=== PATIENT | female | born 1940 | race Hispanic/Latino ===

== ENCOUNTER 2016-04-12 11:05 | Outpatient (CLI) | payer MEDICARE, OTHER ==
--- NOTE | 2016-04-13 09:06 | Mammography Report ---
Screening mammogram: Routine views are compared to her prior exams in 2015 and 2016. The overall fibroglandular pattern is unchanged to being that of intermediate fibroglandular density in a symmetrically distributed pattern. There is no mass nor architectural distortion. There has been interval development of scattered non-clustered benign appearing left breast calcifications. CAD used. Impression: Benign breast pattern. Recommendation: Annual mammogram followup. BI-RADS CATEGORY: 1 = Negative ACR BI-RADS MAMMOGRAPHIC CODES: 0 = Needs additional imaging evaluation; 1 = Negative; 2 = Benign; 3 = Probably benign; 4 = Suspicious; 5 = Malignant; 6 = Known biopsy-proven malignancy COMMENT: 1. Dense breast tissue, i.e., adenosis, fibrocystic changes, etc., may obscure an underlying neoplasm. 2. Approximately 10% of cancers are not detected with mammography. 3. A negative mammography report should not delay biopsy if a clinically suspicious mass is present.
== END 2016-04-12 11:06 | disposition home or self-care (01) ==
LOC: MAMMO 11:05
PROVIDERS: ATTEND Internal Medicine
DX: Z12.31 Encounter for screening mammogram for malignant neoplasm of breast (principal)
CPT/HCPCS: 77067; G0202

== ENCOUNTER 2017-04-13 09:26 | Outpatient (CLI) | payer MEDICARE, OTHER ==
--- NOTE | 2017-04-13 15:12 | Mammography Report ---
BILATERAL DIGITAL SCREENING MAMMOGRAM with CAD: 04/13/17 09:26:00 CLINICAL: Routine screening. COMPARISON:04/12/16 FINDINGS: The breasts are almost entirely fatty. No mass, architectural distortion or suspicious calcifications. IMPRESSION: No mammographic evidence of malignancy. BI-RADS CATEGORY: 1 - - Negative RECOMMENDATION: Routine mammographic screening in one year. COMMENT: Patient follow-up letters are generated by our [address] application.
== END 2017-04-13 09:27 | disposition home or self-care (01) ==
LOC: MAMMO 09:26
PROVIDERS: ATTEND Internal Medicine
DX: Z12.31 Encounter for screening mammogram for malignant neoplasm of breast (principal)
CPT/HCPCS: 77067

== ENCOUNTER 2018-04-17 08:43 | Outpatient (CLI) | payer MEDICARE, OTHER ==
--- NOTE | 2018-04-17 14:20 | Mammography Report ---
BILATERAL DIGITAL SCREENING MAMMOGRAM with CAD: 04/17/18 08:43:00 CLINICAL: Routine screening. COMPARISON: 04/13/17 FINDINGS: There are bilateral scattered areas of fibroglandular density.No mass, architectural distortion or suspicious calcifications. IMPRESSION: No mammographic evidence of malignancy. BI-RADS CATEGORY: 1 -- Negative RECOMMENDATION: Routine mammographic screening in one year. COMMENT: Patient follow-up letters are generated by our [employer] application.
== END 2018-04-17 08:44 | disposition home or self-care (01) ==
LOC: MAMMO 08:43
PROVIDERS: ATTEND Internal Medicine
DX: Z12.31 Encounter for screening mammogram for malignant neoplasm of breast (principal)
CPT/HCPCS: 77067

== ENCOUNTER 2018-05-09 08:30 | Outpatient (CLI) | payer MEDICARE, OTHER ==
[2018-05-09 10:51] LABS: Basophils # (Auto) 0.1 K/mm3 (0.0-0.1); Basophils % (Auto) 1.4 % (0.0-1.8); Eosinophils # (Auto) 0.5 K/mm3 (0.0-0.4); Eosinophils % (Auto) 8.9 % (0.0-4.3); Hematocrit 36.3 % (30.3-42.9); Hemoglobin 12.2 gm/dl (10.1-14.3); Lymphocytes # (Auto) 1.3 K/mm3 (1.2-5.4); Lymphocytes % (Auto) 24.7 % (13.4-35.0); Mean Corpuscular HGB Conc 34 % (30-34); Mean Corpuscular Volume 92 fl (79-97); Monocytes # (Auto) 0.5 K/mm3 (0.0-0.8); Monocytes % (Auto) 8.3 % (0.0-7.3); Platelet Count 221 K/mm3 (140-440); Red Blood Count 3.93 M/mm3 (3.65-5.03); Red Cell Distribution Width 13.8 % (13.2-15.2)
[2018-05-09 11:07] LABS: Alanine Aminotransferase 12 units/L (7-56); Albumin 4.1 g/dL (3.9-5); BUN/Creatinine Ratio 27; Blood Urea Nitrogen 19 mg/dL (7-17); Calcium 9.4 mg/dL (8.4-10.2); Chol/HDL Ratio 2.47 %; HDL Cholesterol 65 mg/dL (40-59); Hemolysis Index 7; LDL Cholesterol,Direct 95 mg/dL (50-130)
[2018-05-09 11:17] LABS: Free T4 (Free Thyroxine) 1.24 ng/dL (0.76-1.46)
== END 2018-05-09 08:31 | disposition home or self-care (01) ==
LOC: LAB 08:30
PROVIDERS: ATTEND Internal Medicine
DX: I10 Essential (primary) hypertension (principal); E78.5 Hyperlipidemia, unspecified; D01.0 Carcinoma in situ of colon; I49.9 Cardiac arrhythmia, unspecified; R73.09 Other abnormal glucose
CPT/HCPCS: 36415; 80053; 80061; 82306; 82607; 83036; 84439; 84443; 85025

== ENCOUNTER 2019-03-26 09:40 | Outpatient (CLI) | payer MEDICARE, OTHER | END 2019-03-26 09:41 | disposition home or self-care (01) | LOC: LAB 09:40 | PROVIDERS: ATTEND Internal Medicine | DX: R73.03 Prediabetes (principal); E02 Subclinical iodine-deficiency hypothyroidism | CPT/HCPCS: 36415; 83036; 84443 ==

== ENCOUNTER 2019-04-18 10:14 | Outpatient (CLI) | payer MEDICARE, OTHER ==
--- NOTE | 2019-04-19 10:21 | Mammography Report ---
DIGITAL SCREENING MAMMOGRAM WITH CAD, 04/18/2019 INDICATION: Routine screening mammography. TECHNIQUE: Digital bilateral 2D mammography was obtained in the craniocaudal and mediolateral obliq ue projections. This examination was interpreted with the benefit of Computer-Aided Detection analysi s. COMPARISON: 04/17/2018 FINDINGS: Breast Density: There are scattered areas of fibroglandular density. There is no evidence of dominant mass, suspicious calcifications or architectural distortion in eithe r breast. IMPRESSION: No mammographic evidence of malignancy. Follow up recommendation: Routine yearly BI-RADS Category 1: Negative. A "normal" or negative report should not discourage follow up or biopsy of a clinically significant f inding. A written summary of these findings will be mailed to the patient. The patient will be entered into a mammography reporting system which will generate a reminder letter for the patient's next appointmen t at the appropriate interval. The [employer] recommends yearly mammograms starting at age 40 and continuing as l karen as a woman is in good health. Breast MRI is recommended for women with an approximate 20-25% or greater lifetime risk of breast cancer, including women with a strong family history of breast or ova bong cancer or who have been treated for Hodgkin's disease. Signer Name: Shubham Hanna MD Signed: 04/19/2019 10:17 AM Workstation Name: [id number]
== END 2019-04-18 10:15 | disposition home or self-care (01) ==
LOC: MAMMO 10:14
PROVIDERS: ATTEND Internal Medicine
DX: Z12.31 Encounter for screening mammogram for malignant neoplasm of breast (principal); N64.89 Other specified disorders of breast
CPT/HCPCS: 77067

== ENCOUNTER 2019-08-02 10:33 | Outpatient (CLI) | payer MEDICARE, OTHER ==
[2019-08-02 11:16] LABS: Basophils # (Auto) 0.1 K/mm3 (0.0-0.1); Basophils % (Auto) 0.8 % (0.0-1.8); Eosinophils # (Auto) 0.2 K/mm3 (0.0-0.4); Eosinophils % (Auto) 2.6 % (0.0-4.3); Hematocrit 37.4 % (30.3-42.9); Hemoglobin 12.5 gm/dl (10.1-14.3); Lymphocytes # (Auto) 1.5 K/mm3 (1.2-5.4); Mean Corpuscular HGB Conc 33 % (30-34); Mean Corpuscular Volume 91 fl (79-97); Monocytes # (Auto) 0.7 K/mm3 (0.0-0.8); Monocytes % (Auto) 9.7 % (0.0-7.3); Platelet Count 254 K/mm3 (140-440); Red Blood Count 4.13 M/mm3 (3.65-5.03); Red Cell Distribution Width 13.9 % (13.2-15.2)
[2019-08-02 11:51] LABS: Alanine Aminotransferase 10 units/L (7-56); Albumin 4.2 g/dL (3.9-5); BUN/Creatinine Ratio 24; Blood Urea Nitrogen 19 mg/dL (7-17); Calcium 9.7 mg/dL (8.4-10.2); Chol/HDL Ratio 2.63 %; HDL Cholesterol 69 mg/dL (40-59); Hemolysis Index 5; LDL Cholesterol,Direct 108 mg/dL (50-130)
== END 2019-08-02 10:34 | disposition home or self-care (01) ==
LOC: LAB 10:33
PROVIDERS: ATTEND Internal Medicine
DX: I10 Essential (primary) hypertension (principal); E78.5 Hyperlipidemia, unspecified; E16.2 Hypoglycemia, unspecified
CPT/HCPCS: 36415; 80053; 80061; 83036; 84443; 85025

== ENCOUNTER 2020-06-07 12:19 | Emergency (ER) | payer MEDICARE, OTHER ==
[2020-06-07] MEDS ORDERED: TETANUS,DIPH,PERTUSS(ACELL) VACCINE 0.5 ML SYRINGE IM ONE (12:36)
--- NOTE | 2020-06-07 12:40 | Event Note ---
ED Screening Note Date of service: 06/07/20 Time: 12:37 ED Screening Note: Pt with pmhx of mild dementia was brought in by daughter for eval after fall Patient states she was walking up her driveway, when she tripped and fell. She fell forward. +head/facial injury. No LOC. She is not on blood thinners She has hematoma to left forehead with mild abrasion. no lac. She denies PAK, dizziness, n/v, neck pain and daughter denies any change in MS since fall This initial assessment/diagnostic orders/clinical plan/treatment(s) is/are subject to change based on patients health status, clinical progression and re- assessment by fellow clinical providers in the ED. Further treatment and workup at subsequent clinical providers discretion. Patient/guardian urged not to elope from the ED as their condition may be serious if not clinically assessed and managed. Initial orders include: CT face/head/neckl
--- NOTE | 2020-06-07 13:50 | Emergency Department Report ---
ED Fall HPI - General Chief Complaint: Fall Stated Complaint: FALL/EYE Time Seen by Provider: 06/07/20 13:02 Source: patient Mode of arrival: Ambulatory - History of Present Illness Initial Comments: 79-year-old female accompanied by her daughter patient alert and oriented in no acute distress she states that this morning walking down her driveway she tripped and fell face down. She denies any loss of consciousness. She was able to get up on her own. She denies dizziness weakness before or after her fall. Patient took ibuprofen at home for pain before coming to the emergency room. She denies any significant medical history. She is currently not taking blood thinners. -: Sudden, hour(s) (3-4) Fall From: standing Fall Witnessed: yes, by family Place Fall Occurred: home (In her driveway) Loss of Consciousness: none Prolonged Down Time?: no Symptoms Prior to Fall: none Location: head, face Severity scale (0 -10): 4 Quality: aching Context: tripped/slipped Associated Symptoms: denies: headache, neck pain, numbness, weakness, chest paint, shortness of breath, abdominal pain, hematuria, lightheaded, vertigo, confusion - Related Data Allergies Allergy/AdvReac Type Severity Reaction Status Date / Time Sulfa (Sulfonamide Allergy Itching Unverified 04/10/14 09:53 Antibiotics) ED Review of Systems ROS: Stated complaint: FALL/EYE Other details as noted in HPI Comment: All other systems reviewed and negative Constitutional: no symptoms reported Eyes: other (Pain to the left orbital region) ENT: denies: ear pain, throat pain, dental pain Respiratory: no symptoms reported. denies: cough, SOB with exertion, wheezing Cardiovascular: denies: chest pain, palpitations, dyspnea on exertion Endocrine: no symptoms reported Gastrointestinal: denies: abdominal pain, constipation, hematemesis Genitourinary: denies: urgency, frequency, hematuria Neurological: denies: headache, weakness, numbness, paresthesias, confusion, a bnormal gait, vertigo, other ED Past Medical Hx - Past Medical History Previous Medical History?: No Additional medical history: colon ca - Surgical History Past Surgical History?: Yes Additional Surgical History: colon - Social History Smoking Status: Never Smoker ED Physical Exam - General Limitations: No Limitations General appearance: alert, in no apparent distress - Head Head exam: Present: other (Left forehead and left orbital region with ecchymosis bruising mild swelling skins intact) - Eye Eye exam: Present: PERRL, EOMI, periorbital swelling (Left) Pupils: Present: normal accommodation - ENT ENT exam: Present: TM's normal bilaterally - Neck Neck exam: Present: normal inspection. Absent: tenderness (No midline cervical tenderness) - Respiratory Respiratory exam: Present: normal lung sounds bilaterally. Absent: respiratory distress, wheezes, rales - Cardiovascular Cardiovascular Exam: Present: regular rate, normal heart sounds - GI/Abdominal GI/Abdominal exam: Present: soft, normal bowel sounds. Absent: distended, tenderness - Extremities Exam Extremities exam: Present: normal inspection, other (Full range of motion of all her extremities muscle strength is a 5/5 bilaterally skins intact) - Back Exam Back exam: Present: normal inspection. Absent: tenderness (No vertebral point tenderness) - Neurological Exam Neurological exam: Present: alert, oriented X3, CN II-XII intact - Psychiatric Psychiatric exam: Present: normal affect - Skin Skin exam: Present: warm, dry, intact ED Course Vital Signs 06/07/20 12:24 Temperature 98.6 F Pulse Rate 69 Respiratory 18 Rate Blood Pressure 160/55 O2 Sat by Pulse 96 Oximetry - Reevaluation(s) Reevaluation #1: 06/07/20 14:51 Patient in no distress all findings reviewed with her she is ready to be discharged home ED Medical Decision Making - Radiology Data Radiology results: report reviewed CT head TECHNIQUE: Routine CT head without contrast. All CT scans at this location are performed using CT dose reduction for ALARA by means of automated exposure control. COMPARISON: None. FINDINGS: BRAIN / INTRACRANIAL CONTENTS: No acute hemorrhage, mass effect, midline shift, hydrocephalus, or acute, large territorial infarct. No signs of significant atrophy or chronic infarct. Minimal, n onspecific white matter disease suggested. CRANIOCERVICAL JUNCTION: No significant abnormality. ORBITS: No significant abnormality of visualized orbits. SINUSES / MASTOIDS: Visualized paranasal sinuses and mastoid air cells are essentially clear. Mastoid air cells on the left are underdeveloped. ADDITIONAL FINDINGS: Subcutaneous soft tissue swelling is seen in the left periorbital region. No signs of underlying calvarial or orbital fracture appreciated. Atherosclerotic disease seen in the anterior circulation. IMPRESSION: 1. No focal mass, intracranial hemorrhage, hydrocephalus, or acute, large territorial infarct. CT facial bones wo con INDICATION / CLINICAL INFORMATION: 79 years Female; MAIN. Fall; facial injury; head trauma TECHNIQUE: Thin cut axial images obtained. Sagittal and coronal reconstructions performed. All CT scans at this location are performed using CT dose reduction for ALARA by means of automated exposure control. COMPARISON: None available. FINDINGS: Significant subcutaneous soft tissue swelling is seen in the left frontal and periorbital region. No signs of underlying facial bone fracture seen. Mild mucosal thickening in the ethmoids. Atherosclerotic disease is seen in the anterior circulation. IMPRESSION: 1. No definitive signs of acute bony facial trauma. FINDINGS: POST-SURGICAL CHANGES: None. CT OF CERVICAL SPINE ALIGNMENT: No significant abnormality. VERTEBRAE: No signs of fracture. Vertebral bodies are grossly normal in height throughout. Anterior spondylosis seen at multiple levels-diffuse hepatic skeletal hyperostosis might be consideration. Significant osseous foraminal narrowing is seen on the right at C3-4, C4-5, and C5-6 related uncinate and facet hypertrophy. Similar findings on the left at C4-5, C5-6, C6- 7. Multilevel moderate facet hypertrophy noted. INTRAVERTEBRAL DISCS: Multilevel disc space narrowing seen. Mild disc disease seen at levels. Most marked findings at C3-4 and C4-5. No definitive signs of significant canal stenosis appreciated. PARASPINAL SOFT TISSUES: No significant abnormality. ADDITIONAL FINDINGS: Scarring type changes are seen along apices. Atherosclerotic disease is seen in the carotid bifurcation regions bilaterally. IMPRESSION: 1. No signs of acute bony trauma to the cervical spine. Critical Care Time: No Critical care attestation.: If time is entered above; I have spent that time in minutes in the direct care of this critically ill patient, excluding procedure time. ED Disposition Clinical Impression: Head injury Qualifiers: Encounter type: initial encounter Qualified Code(s): S09.90XA - Unspecified injury of head, initial encounter Contusion of face Qualifiers: Encounter type: initial encounter Qualified Code(s): S00.83XA - Contusion of other part of head, initial encounter Disposition: DC-01 TO HOME OR SELFCARE Is pt being admited?: No Does the pt Need Aspirin: No Condition: Stable Instructions: How to Use Cold Therapy, [id number], Facial or Scalp Contusion, Head Injury, Adult Additional Instructions: Continue to place cool compress off-and-on at least 3-4 times a day. Take Advil or Tylenol as directed by package insert for pain. Follow-up with your primary care doctor in the next 2-3 days. Return to the emergency room for any worsening symptoms pain not relieved with Tylenol or Advil vomiting change in behavior any weakness Referrals: VALENTE SHEPPARD MD [Primary Care Provider] - 3-5 Days Time of Disposition: 14:53
--- NOTE | 2020-06-07 14:33 | Cat Scan Report ---
CT cervical spine wo con INDICATION / CLINICAL INFORMATION: 79 years Female; MAIN. TECHNIQUE: Axial CT images of the cervical spine were obtained. Sagittal and coronal reformatted images were pr oduced. All CT scans at this location are performed using CT dose reduction for ALARA by means of aut omated exposure control. COMPARISON: None available. FINDINGS: POST-SURGICAL CHANGES: None. ALIGNMENT: No significant abnormality. VERTEBRAE: No signs of fracture. Vertebral bodies are grossly normal in height throughout. Anterior spondylosis seen at multiple levels-diffuse hepatic skeletal hyperostosis might be consideration. Significant osseous foraminal narrowing is seen on the right at C3-4, C4-5, and C5-6 related uncinate and facet hypertrophy. Similar findings on the left at C4-5, C5-6, C6-7. Multilevel moderate facet hypertrophy noted. INTRAVERTEBRAL DISCS: Multilevel disc space narrowing seen. Mild disc disease seen at levels. Most ma rked findings at C3-4 and C4-5. No definitive signs of significant canal stenosis appreciated. PARASPINAL SOFT TISSUES: No significant abnormality. ADDITIONAL FINDINGS: Scarring type changes are seen along apices. Atherosclerotic disease is seen in the carotid bifurcation regions bilaterally. IMPRESSION: 1. No signs of acute bony trauma to the cervical spine. Signer Name: Rajesh Cristina MD, III Signed: 06/07/2020 2:28 PM Workstation Name: [email or web address]
--- NOTE | 2020-06-07 14:34 | Cat Scan Report ---
. CT facial bones wo con INDICATION / CLINICAL INFORMATION: 79 years Female; MAIN. Fall; facial injury; head trauma TECHNIQUE: Thin cut axial images obtained. Sagittal and coronal reconstructions performed. All CT scans at this location are performed using CT dose reduction for ALARA by means of automated exposure control. COMPARISON: None available. FINDINGS: Significant subcutaneous soft tissue swelling is seen in the left frontal and periorbital region. No signs of underlying facial bone fracture seen. Mild mucosal thickening in the ethmoids. Atherosclerotic disease is seen in the anterior circulation. IMPRESSION: 1. No definitive signs of acute bony facial trauma. Signer Name: Rajesh Cristina MD, III Signed: 06/07/2020 2:30 PM Workstation Name: [email or web address]
--- NOTE | 2020-06-07 14:37 | Cat Scan Report ---
. CT head/brain wo con INDICATION / CLINICAL INFORMATION: 79 years Female; MAIN. TECHNIQUE: Routine CT head without contrast. All CT scans at this location are performed using CT dos e reduction for ALARA by means of automated exposure control. COMPARISON: None. FINDINGS: BRAIN / INTRACRANIAL CONTENTS: No acute hemorrhage, mass effect, midline shift, hydrocephalus, or acu te, large territorial infarct. No signs of significant atrophy or chronic infarct. Minimal, nonspecif ic white matter disease suggested. CRANIOCERVICAL JUNCTION: No significant abnormality. ORBITS: No significant abnormality of visualized orbits. SINUSES / MASTOIDS: Visualized paranasal sinuses and mastoid air cells are essentially clear. Mastoid air cells on the left are underdeveloped. ADDITIONAL FINDINGS: Subcutaneous soft tissue swelling is seen in the left periorbital region. No sig ns of underlying calvarial or orbital fracture appreciated. Atherosclerotic disease seen in the anterior circulation. IMPRESSION: 1. No focal mass, intracranial hemorrhage, hydrocephalus, or acute, large territorial infarct. Signer Name: Rajesh Cristina MD, III Signed: 06/07/2020 2:32 PM Workstation Name: [email or web address]ITALValue and Budget Housing CorporationLOURDES [facility]1
[2020-06-07 15:05] VITALS: BP 136/86
== END 2020-06-07 15:04 | disposition home or self-care (01) ==
LOC: ED 12:19
DX: S09.90XA Unspecified injury of head, initial encounter (principal); Z98.890 Other specified postprocedural states; Z88.2 Allergy status to sulfonamides; W01.0XXA Fall on same level from slipping, tripping and stumbling without subsequent striking against object, initial encounter; Y93.89 Activity, other specified; Y92.009 Unspecified place in unspecified non-institutional (private) residence as the place of occurrence of the external cause; Y99.8 Other external cause status
CPT/HCPCS: 70450; 70486; 72125